=== PATIENT | female | born 1950 | race Caucasian/White ===

== ENCOUNTER 2016-09-07 08:31 | Inpatient (IN) | payer OTHER ==
[2016-09-04 12:56] LABS: HEMATOCRIT 33.3 % (36.0-48.0); HEMOGLOBIN 10.7 g/dL (12.0-16.0)
[2016-09-04 13:09] LABS: BUN (BLOOD UREA NITROGEN) 16 MG/DL (6-23); CALCIUM, SERUM 8.7 MG/DL (8.5-10.4); CHLORIDE, SERUM 104 MMOL/L (96-112); CO2 (CARBON DIOXIDE) 32 MMOL/L (24-34); CREATININE 0.79 MG/DL (0.55-1.02); GFR AFRICAN AMERICAN 90 ML/MIN (>=60); GFR NON AFRICAN AMERICAN 77 ML/MIN (>=60); GLUCOSE, SERUM 74 MG/DL (60-99); POTASSIUM, SERUM 4.1 MMOL/L (3.5-5.3); SODIUM, SERUM 143 MMOL/L (135-148)
--- NOTE | ~2016-09-07 | OP ---
Record Of Operation [facility] [address] [place]. [address] NAME: SHARLA HEBERT : 48 STATUS : ADM IN PAT#: [id number] AGE: 66 ADM/REG DATE : 09/07/16 MR#: [id number] REPORT SERV DATE: 09/07/16 DICTATED BY: LEONORA HUTCHINSON DATE: 09/07/16 REPORT STATUS : Draft TRANSCRIBED BY: MODL DATE: 09/07/16 DATE OF PROCEDURE: 09/07/2016 PREOPERATIVE DIAGNOSIS: Incarcerated incisional hernia. POSTOPERATIVE DIAGNOSIS: Incarcerated incisional hernia. PROCEDURE: Open incisional hernia repair with mesh. ENVIRONMENTAL HEALTH NURSE: Venkat Sheehan. ANESTHESIA: General and TAP blocks. ESTIMATED BLOOD LOSS: 5 mL. IV FLUIDS: 900 mL. SPECIMENS: None. COMPLICATIONS: None. BRIEF HISTORY: Ms. Hebert is a 66-year-old woman who has had a previous open cholecystectomy many years ago. She developed a small incisional hernia, became incarcerated with fat, and became painful. Open repair was recommended. The procedure with the risks including bleeding, infection, requiring removal of the mesh, chronic pain, and recurrence of hernia were all explained, and she agreed to proceed. DESCRIPTION OF PROCEDURE: After consent was obtained, she was taken to the operating room and placed in supine position on the operating table. General endotracheal anesthesia was administered. The abdomen was then prepped and draped in normal sterile fashion. Preoperative antibiotics were administered. SCDs were placed. Time-out was performed. We began by reopening the previous scar at the medial aspect of the right upper quadrant incision. Electrocautery was then used to dissect down to the fascia. We identified the hernia contents as I came through a small defect in the medial portion of the incision. We dissected the fat that was herniated circumferentially and then away from the fascia. A large right angle clamp was placed across the base and it was divided and passed off the field and it was ligated using a 2-0 Vicryl tie. This was reduced back into the abdomen. We then elevated the edges of the hernia and created preperitoneal flaps. Hernia defect measured approximately 2.5 cm. We then placed a 4.3 cm Ventral Patch Proceed mesh within the preperitoneal space. It was secured medially and laterally to the fascia using a U- stitch of 0 Nurolon suture. We then reapproximated the fascial defect using interrupted 0 Nurolon sutures. The cavity was irrigated with sterile saline. Hemostasis was good. Reapproximated the deep tissues in 2 layers using interrupted 3-0 Vicryl suture and the skin was closed using a running 4-0 Monocryl subcuticular stitch. The abdomen was cleaned and Dermabond was applied. The patient tolerated the procedure well, was extubated in the Record Of Operation [address] [address] NAME: SHARLA HEBERT : 48 STATUS : ADM IN PAT#: [id number] AGE: 66 ADM/REG DATE : 09/07/16 MR#: [id number] REPORT SERV DATE: 09/07/16 DICTATED BY: LEONORA HUTCHINSON SHANE DATE: 09/07/16 REPORT STATUS : Draft TRANSCRIBED BY: CHRISTINA DATE: 09/07/16 operating room, and sent to the recovery room in stable condition. JAMIE/CHRISTINA Leonora Hutchinson MD / [id number] CC: Leonora Hutchinson MD
[~2016-09-07 08:31] MED LIST: AVINZA30 PO; BREO ELLIPTA 21 EACH INH; CARTIA XT240 MG/24 PO; DILT-XR240 MG PO; EFFEXOR XR150 MG PO; EVISTA60 PO; L20 PO; LEXAPRO10 PO; LIPITOR40 PO; LORT7 PO; MSCONT15 PO; MSIMMR15 PO; NASONEX NAS; NORCO1 TAB PO; NUIRONCAP PO; PERCOCET1 TA2 PO; PRILOSEC40 MG PO; PRIN10 PO; PROAIR HFA INH; RYTHMOL150 MG PO; SINGULAIR1 PO; TRAZ100 PO; ZYRTEC ALLGY10 MG PO; ZYRTEC-D ALG PO
[2016-09-08] MEDS ORDERED: NORCO1 TAB PO (10:11)
== END 2016-09-08 11:32 | disposition home or self-care (01) | DRG 355 ==
LOC: SDC/OF 08:31 → PACU 12:14 → 5SO 13:28
PROVIDERS: Surgery
PROC: 3E0T3CZ (ICD-10-PCS; 2016-09-07)
PROC: 0WUF0JZ Supplement Abdominal Wall with Synthetic Substitute, Open Approach (ICD-10-PCS; principal; 2016-09-07 10:15)
DX: K43.0 Incisional hernia with obstruction, without gangrene (principal); I48.2 Chronic atrial fibrillation; J44.9 Chronic obstructive pulmonary disease, unspecified; G89.29 Other chronic pain; M54.9 Dorsalgia, unspecified; Z87.891 Personal history of nicotine dependence
CPT/HCPCS: 80048; 82962; 85014; 85018; 87641; 93005; 94640; A9270-GY; C1781; J0360; J0690; J1170; J2175; J2250; J2270; J2405; J2710; J2795; J3010

== ENCOUNTER 2016-09-10 21:14 | Inpatient (IN) | payer OTHER ==
--- NOTE | ~2016-09-10 | DS ---
Discharge Summary [id number] [place]. [address] NAME: JORGE CHING : 48 STATUS : DIS IN PAT#: [id number] AGE: 66 ADM/REG DATE : 09/10/16 MR#: [id number] REPORT SERV DATE: 09/13/16 DICTATED BY: LILIAN LEONARD DATE: 09/12/16 REPORT STATUS : Draft TRANSCRIBED BY: CHRISTINA DATE: 09/12/16 ADMISSION DATE: 09/10/2016 DISCHARGE DATE: 09/12/2016 DISCHARGE DIAGNOSES: 1. Sepsis. 2. Healthcare associated pneumonia. 3. Paroxysmal atrial fibrillation. 4. History of esophageal stricture. 5. History of chronic back pain. 6. History of T12 compression fracture. 7. History of hypertension. 8. History of recent herniorrhaphy. 9. Normocytic anemia without evidence of acute blood loss. DISCHARGE CONDITION: Stable. HISTORY OF PRESENT ILLNESS: For detailed HPI, please make reference to Dr. Shorty Sweeney's dictation on 09/11/2016. In brief, this is a 66-year-old female with medical history significant for recent incisional hernia repair who was recently discharged home on 09/08. She presented to the hospital 2 days after discharge with complaints of cough, chest congestion, fever, and chills. In the ER, she was found to have a temperature of 102.6, pulse rate of 106, blood pressure 175/77, respiratory rate of 22, saturating 86% on room air. Physical examination noted for bibasilar crackles and labored respiratory effort. LABORATORY DATA: Significant for WBC of 12.4, lactic acid of 0.8. CT scan of the abdomen and pelvis showed no acute intraabdominal process but noted a left lower lobe pneumonia. An assessment of healthcare associated pneumonia was made in the ER. The patient was admitted to the Hospitalist Service for further management. HOSPITAL COURSE: 1. Sepsis due to healthcare associated pneumonia. The patient was started on broad- spectrum IV antibiotics of vancomycin and cefepime. White cell count gradually trended down and returned to baseline. The patient's blood cultures yielded no growth. Shortness of breath and cough continued to improve. The patient's oxygen demand also significantly continued to improve during the course of this admission. The patient also received DuoNebs treatment. Cough and shortness of breath at the time of discharge had completely resolved. The patient was transitioned from IV antibiotics to p.o. antibiotics to complete a total of seven days' antibiotics therapy. The patient was advised to continue to follow up with her primary care physician at the time of discharge. 2. Acute hypoxic respiratory failure. On presentation, the patient has significant hypoxia with oxygen saturation in the low 80s. The patient was placed on 4 L of oxygen. The patient's oxygen saturation significantly improved into the 93. The patient received IV antibiotics throughout the course of this admissions, and oxygen demand significantly improved. Prior to discharge, the patient will have an evaluation Discharge Summary [id number] [place]. [address] NAME: JORGE CHING : 48 STATUS : DIS IN PAT#: [id number] AGE: 66 ADM/REG DATE : 09/10/16 MR#: [id number] REPORT SERV DATE: 09/13/16 DICTATED BY: LILIAN LEONARD DATE: 09/12/16 REPORT STATUS : Draft TRANSCRIBED BY: CHRISTINA DATE: 09/12/16 for need for home O2. If she meets criteria, she will be discharged home with home oxygen. 3. Paroxysmal atrial fibrillation. The patient was diagnosed with AFib in 2014. At the time of diagnosis, CHADS score was 0. The patient was not on chronic anticoagulation. The patient reported that her assistive technology specialist recently moved out of town and is yet to find a new assistive technology specialist. The patient's last known assistive technology specialist was Dr. Ty. The patient's CHADS2-VASc score is 3; however, we will not initiate chronic anticoagulation during the course of this admission as the patient recently just had a recent surgery. We will defer chronic anticoagulation to the patient's new assistive technology specialist as an outpatient. I will ensure that the patient has an appointment with cardiology team within one to two weeks of discharge. The patient was advised to continue Cardizem for rate control. 4. Hypertension. The patient's blood pressure remained controlled throughout the course of this admission. 5. History of recent incisional herniorrhaphy. The patient's surgeon was notified of patient's admission, will stop by to evaluate the patient. No acute intraabdominal process identified. The patient was advised to continue followup with surgeon as scheduled. DISCHARGE MEDICATIONS: 1. Levofloxacin 750 mg p.o. daily. 2. Diltiazem 250 mg p.o. daily. 3. Colace 100 mg p.o. b.i.d. 4. Ferrous 150 mg p.o. daily. 5. Albuterol inhaler. 6. [place] 10/325 mg p.o. q.6 hours. 7. Omeprazole 40 mg p.o. daily. 8. Lasix 20 mg p.o. daily p.r.n. for fluid retention. DISCHARGE FOLLOWUP: 1. The patient will follow up with primary care physician within one to two weeks of discharge. 2. The patient to follow up with General Surgery within scheduled. 3. The patient to follow up with Cardiology within one to two weeks of discharge. DISCHARGE ACTIVITIES: As tolerated. DISCHARGE DIET: Low-salt diet. Greater than 35 minutes was used to prepare this patient's discharge, reconcile medication, advise the patient on discharge plans and followup. MIRIANO/CHRISTINA Lilian Villalobos Discharge Summary [address] [address] NAME: JORGE CHING MARY KATE : 48 STATUS : DIS IN PAT#: [id number] AGE: 66 ADM/REG DATE : 09/10/16 MR#: [id number] REPORT SERV DATE: 09/13/16 DICTATED BY: LILIAN LEONARD DATE: 09/12/16 REPORT STATUS : Draft TRANSCRIBED BY: MODRobin DATE: 09/12/16 MD Jose / [id number]
--- NOTE | ~2016-09-10 | HP ---
History And Physical [address] [address] NAME: JORGE CHING : 48 STATUS : ADM IN PAT#: [id number] AGE: 66 ADM/REG DATE : 09/10/16 MR#: [id number] REPORT SERV DATE: 09/11/16 DICTATED BY: CELINE CARLSON DATE: 09/11/16 REPORT STATUS : Draft TRANSCRIBED BY: MODL DATE: 09/11/16 DATE OF ADMISSION: 09/10/2016 CHIEF COMPLAINT: A 66-year-old female presenting after recent incisional hernia repair with fevers, chills, chest congestion. HISTORY OF PRESENT ILLNESS: The patient's history was obtained through careful interview with the patient and coupled with review of [facility] and [facility] medical records. The patient underwent surgery for an incarcerated incisional hernia under the care Dr. Hutchinson on 09/07. She recovered quite well from that surgery and has been able to return home with a good appetite and good bowel movements. Just on the day of admission, she developed nausea with three episodes of vomiting and became increasingly ill as the day progressed. She describes fevers up to 102.0, chills, diaphoresis. She developed chest congestion, nonproductive cough, but no shortness of breath. She describes abdominal discomfort, a fullness quality, 6/10 severity with bloating. She describes a midback pain possibly at the base of her lungs. She describes it mostly midline though and aching quality, 8/10 severity exacerbated by coughing. She looks pale to her family. She has had lightheadedness, but no confusion. REVIEW OF SYSTEMS: Otherwise, a 14-point review of systems was obtained and was negative. PAST MEDICAL HISTORY: 1. COPD. 2. Paroxysmal atrial fibrillation. 3. Hypertension. 4. Esophageal stricture seen by Dr. Doty. 5. Chronic back pain. 6. T12 compression fracture. 7. Nephrolithiasis seen previously by Dr. Sarabia. PAST SURGICAL HISTORY: 1. Hysterectomy with bilateral oophorectomy. 2. Cholecystectomy. 3. Leg fracture with reconstruction. 4. Lumbar spine surgery. History And Physical [address] [address] NAME: JORGE CHING MARY KATE : 48 STATUS : ADM IN PAT#: [id number] AGE: 66 ADM/REG DATE : 09/10/16 MR#: [id number] REPORT SERV DATE: 09/11/16 DICTATED BY: CELINE CARLSON DATE: 09/11/16 REPORT STATUS : Draft TRANSCRIBED BY: CHRISTINA DATE: 09/11/16 5. Cervical spine surgery. 6. Left carpal tunnel release. ALLERGIES: STEROIDS. SOCIAL HISTORY: Quit smoking in 2012. No alcohol abuse. She is , has two children. Two sons live locally, two grandchildren, two great-grandchildren. The patient lives in [place], [place]. FAMILY HISTORY: Mother with an alcoholic. Father committed suicide. CURRENT MEDICATIONS: Include: Albuterol inhaler, Dulcolax, diltiazem extended release 240 mg p.o. daily, iron supplement, Breo Ellipta inhaled at bedtime, Lasix 20 mg as needed, hydrocodone, Levsin, Singulair 10 mg p.o. daily, MS Contin 15 mg p.o. q.8 hours p.r.n., multivitamin, Aleve p.r.n., Prilosec 40 mg as needed. PHYSICAL EXAMINATION: VITAL SIGNS: Temperature 102.6, pulse 106, blood pressure 175/77, respiratory rate 22, O2 saturation 86% on room air, 94% on 3 L nasal cannula. GENERAL: An ill-appearing female, and evidence of some distress secondary to cough and discomfort. HEENT: Pupils equal, round, and reactive to light. No conjunctival pallor. No scleral icterus. Nares are patent. Oropharynx is clear of obstruction. Moist mucous membranes. NECK: Trachea midline. No thyromegaly. LYMPH: No cervical lymphadenopathy. No supraclavicular lymphadenopathy. No inguinal lymphadenopathy. RESPIRATORY: The patient does have crackles on examination. At this time, I do not appreciate any focal egophony. No wheezes, no rales. The patient has a labored respiratory effort though. CARDIOVASCULAR: Tachycardic. Regular rhythm. No murmurs, rubs, or gallops are appreciated. No extremity edema is appreciated. ABDOMEN: Quite distended by examination with tympanic resonance percussed throughout. Minimally tender throughout, but nonfocal. No guarding. No rebound. Diminished bowel tones. No hepatosplenomegaly. DERMATOLOGICAL: Warm and dry extremities, no pallor no cyanosis. PSYCHIATRIC: Normal affect. Good mood. Alert and oriented x3. LABORATORY DATA: White blood cell count 12.4, hemoglobin 10, hematocrit 33, platelets 299, sodium 137, potassium 3.7, chloride 102, bicarb 27, BUN 21, creatinine 0.9, glucose 128, lipase 59, lactic acid 0.8. Liver enzymes within normal limits. Urinalysis negative for infection. STUDIES: A CT scan of the abdomen and pelvis shows no acute intraabdominal process, but does show a left lower lung pneumonia. ASSESSMENT AND PLAN: 1. Sepsis with white blood cell count of 12.4, fever 102.6, tachycardia, and tachypnea. History And Physical [address] [address] NAME: JORGE CHING : 48 STATUS : ADM IN [facility]#: [id number] AGE: 66 ADM/REG DATE : 09/10/16 MR#: [id number] REPORT SERV DATE: 09/11/16 DICTATED BY: CELINE CARLSON DATE: 09/11/16 REPORT STATUS : Draft TRANSCRIBED BY: CHRISTINA DATE: 09/11/[address] on IV antibiotics. 2. Facility-acquired pneumonia. Check blood cultures. Place on IV antibiotics. 3. Recovering hernia repair. Consult Dr. Hutchinson, surgeon. 4. Hypoxic respiratory failure. Provide supportive care. 5. Paroxysmal atrial fibrillation. Check telemetry. KPL/MODL Celine Carlson M.D. / [id number] CC: Gabe Brush MD
[2016-09-10 20:21] LABS: ASCORBIC ACID (UR NOT ORDER) NEG (NEG); BILIRUBIN, URINE NEGATIVE (NEG); KETONE, URINE 20 MG/DL (NEG); LEUKOCYTE ESTERASE(NOT OR NEG (NEG); NITRITE (URINE) NEG (NEG); WBC (NOT ORDERED) (RFLEX) 1 (0-5)
[2016-09-10 20:24] LABS: BASOPHILS 0.2 %; BASOPHILS ABSOLUTE 0.02 10/3/uL (0.0-0.16); EOSINOPHILS 2.9 %; EOSINOPHILS ABSOLUTE 0.36 10/3/uL (0.0-0.53); HEMATOCRIT 33.6 % (36.0-48.0); HEMOGLOBIN 10.8 g/dL (12.0-16.0); IMMATURE GRANULOCYTES 0.2 %; IMMATURE GRANULOCYTES ABSOLUTE 0.03 10/3/uL (0.0-0.11); LYMPHOCYTES 5.4 %; LYMPHOCYTES ABSOLUTE 0.67 10/3/uL (0.67-4.30); MEAN CORPUS HGB CONC 32.1 g/dL (32.0-36.0); MEAN CORPUSCULAR HEMOGLOB 28.8 pg (26.0-34.0); MEAN CORPUSCULAR VOLUME 89.6 fL (80-100); MEAN PLATELET VOLUME 9.8 fL (9.2-13.0); MONOCYTES 4.7 %; MONOCYTES ABSOLUTE 0.59 10/3/uL (0.21-1.20); NEUTROPHILS 86.6 %; NEUTROPHILS ABSOLUTE 10.77 10/3/uL (2.02-8.40); PLATELET COUNT 299 10/3/uL (150-400); RBC DISTRIBUTION WIDTH 15.1 % (12.0-16.0); RED CELL COUNT 3.75 10/6/uL (4.0-5.6)
[2016-09-10 20:25] LABS: ER CBC TAT 0 Hrs 10 Mins; MANUAL DIFF NO %; WHITE BLOOD CELLS 12.4 10/3/uL (4.5-10.5)
[2016-09-10 20:42] LABS: BUN (BLOOD UREA NITROGEN) 21 MG/DL (6-23); CALCIUM, SERUM 8.9 MG/DL (8.5-10.4); CHLORIDE, SERUM 102 MMOL/L (96-112); CO2 (CARBON DIOXIDE) 27 MMOL/L (24-34); DIRECT BILIRUBIN 0.1 MG/DL (0.0-0.4); GFR AFRICAN AMERICAN 77 ML/MIN (>=60); GFR NON AFRICAN AMERICAN 66 ML/MIN (>=60); GLUCOSE, SERUM 128 MG/DL (60-99); INDIRECT BILIRUBIN(NOT ORDER) 0.4 MG/DL (0.1-0.9); POTASSIUM, SERUM 3.7 MMOL/L (3.5-5.3); SODIUM, SERUM 137 MMOL/L (135-148); TOTAL BILIRUBIN 0.5 MG/DL (0-1.2)
[2016-09-10 21:13] LABS: ALKALINE PHOSPHATASE 110 U/L (45-117); SGOT(AST) 21 U/L (5-40); SGPT(ALT) 24 U/L (5-65); TOTAL PROTEIN 7.6 G/DL (6.0-8.5)
[2016-09-10 21:14] LABS: ALBUMIN 3.9 G/DL (3.5-5.0)
[2016-09-10] MEDS ORDERED: NORCO1 TAB PO (21:30)
[2016-09-10] MEDS ORDERED: NUIRONCAP PO (21:31)
[2016-09-10] MEDS ORDERED: MSCONT15 PO (21:31)
[2016-09-10] MEDS ORDERED: CARTIA XT240 MG/24 PO (21:31)
[2016-09-10] MEDS ORDERED: BREO ELLIPTA 21 EACH INH (21:32)
[2016-09-10] MEDS ORDERED: ALBUTEROL0.083 % INH (21:32)
[2016-09-10] MEDS ORDERED: PROAIR HFA INH (21:32)
[2016-09-10] MEDS ORDERED: SINGULAIR1 PO (21:33)
[2016-09-10] MEDS ORDERED: PRILOSEC40 MG PO (21:33)
[2016-09-10] MEDS ORDERED: LEVSINTAB PO (21:34)
[2016-09-10] MEDS ORDERED: L20 PO (21:35)
[2016-09-10] MEDS ORDERED: BIST PO (21:35)
[2016-09-10] MEDS ORDERED: ALEVE220 MG PO (21:36)
[2016-09-10] MEDS ORDERED: MULTIVIT/MIN PO (21:37)
[2016-09-11 06:25] LABS: BASOPHILS 0.2 %; BASOPHILS ABSOLUTE 0.03 10/3/uL (0.0-0.16); EOSINOPHILS 1.5 %; HEMOGLOBIN 9.4 g/dL (12.0-16.0); IMMATURE GRANULOCYTES 0.4 %; IMMATURE GRANULOCYTES ABSOLUTE 0.05 10/3/uL (0.0-0.11); MEAN CORPUS HGB CONC 32.6 g/dL (32.0-36.0); MEAN CORPUSCULAR HEMOGLOB 29.4 pg (26.0-34.0); MEAN PLATELET VOLUME 9.7 fL (9.2-13.0); MONOCYTES 5.9 %; NEUTROPHILS ABSOLUTE 11.49 10/3/uL (2.02-8.40); PLATELET COUNT 261 10/3/uL (150-400); WHITE BLOOD CELLS 13.7 10/3/uL (4.5-10.5)
[2016-09-11 06:26] LABS: HEMATOCRIT 28.8 % (36.0-48.0); MANUAL DIFF NO %
[2016-09-11 06:32] LABS: INTERNATIONAL NORMAL RATI 1.2 UNITS (-); PARTIAL THROMBO TIME 36.6 SEC (22.5-37.2); PROTIME (NOT ORD) 14.8 SEC (12.0-14.5)
[2016-09-11 06:51] LABS: CALCIUM, SERUM 8.5 MG/DL (8.5-10.4); CHLORIDE, SERUM 106 MMOL/L (96-112); CO2 (CARBON DIOXIDE) 26 MMOL/L (24-34); CREATININE 0.52 MG/DL (0.55-1.02); GFR AFRICAN AMERICAN 115 ML/MIN (>=60); GFR NON AFRICAN AMERICAN 99 ML/MIN (>=60); GLUCOSE, SERUM 105 MG/DL (60-99); PHOSPHORUS, SERUM 2.9 MG/DL (2.5-4.5); POTASSIUM, SERUM 4.3 MMOL/L (3.5-5.3); SGPT(ALT) 20 U/L (5-65); SODIUM, SERUM 140 MMOL/L (135-148); TOTAL BILIRUBIN 0.5 MG/DL (0-1.2); TOTAL PROTEIN 6.2 G/DL (6.0-8.5); TROPONIN I <0.02 NG/ML (<0.05)
[2016-09-11 06:52] LABS: A/G RATIO 0.9 (0.7-1.9); ALBUMIN 2.9 G/DL (3.5-5.0); ALKALINE PHOSPHATASE 83 U/L (45-117); BUN (BLOOD UREA NITROGEN) 12 MG/DL (6-23); GLOBULIN 3.3 G/DL (2.5-4.1); SGOT(AST) 28 U/L (5-40); ULTRASENSITIVE TSH 0.287 MCIU/ML (0.358-3.740)
[2016-09-11 07:07] LABS: PROCALCITONIN 1.54 ng/mL (<0.5)
[2016-09-12 05:17] LABS: BASOPHILS 0.5 %; BASOPHILS ABSOLUTE 0.03 10/3/uL (0.0-0.16); EOSINOPHILS 6.3 %; EOSINOPHILS ABSOLUTE 0.42 10/3/uL (0.0-0.53); HEMATOCRIT 28.4 % (36.0-48.0); HEMOGLOBIN 9.4 g/dL (12.0-16.0); IMMATURE GRANULOCYTES 0.2 %; IMMATURE GRANULOCYTES ABSOLUTE 0.01 10/3/uL (0.0-0.11); LYMPHOCYTES 16.3 %; LYMPHOCYTES ABSOLUTE 1.08 10/3/uL (0.67-4.30); MEAN CORPUS HGB CONC 33.1 g/dL (32.0-36.0); MEAN CORPUSCULAR HEMOGLOB 29.5 pg (26.0-34.0); MONOCYTES 8.6 %; MONOCYTES ABSOLUTE 0.57 10/3/uL (0.21-1.20); NEUTROPHILS 68.1 %; NEUTROPHILS ABSOLUTE 4.52 10/3/uL (2.02-8.40); PLATELET COUNT 255 10/3/uL (150-400); RBC DISTRIBUTION WIDTH 15.1 % (12.0-16.0); RED CELL COUNT 3.19 10/6/uL (4.0-5.6)
[2016-09-12 05:22] LABS: MANUAL DIFF NO %; WHITE BLOOD CELLS 6.6 10/3/uL (4.5-10.5)
[2016-09-12 05:33] LABS: BUN (BLOOD UREA NITROGEN) 8 MG/DL (6-23); CALCIUM, SERUM 8.9 MG/DL (8.5-10.4); CHLORIDE, SERUM 106 MMOL/L (96-112); CO2 (CARBON DIOXIDE) 27 MMOL/L (24-34); CREATININE 0.44 MG/DL (0.55-1.02); GFR AFRICAN AMERICAN 121 ML/MIN (>=60); GFR NON AFRICAN AMERICAN 104 ML/MIN (>=60); GLUCOSE, SERUM 99 MG/DL (60-99); PHOSPHORUS, SERUM 2.5 MG/DL (2.5-4.5); POTASSIUM, SERUM 3.9 MMOL/L (3.5-5.3); SODIUM, SERUM 142 MMOL/L (135-148)
[2016-09-12] MEDS ORDERED: DSS PO (09:57)
[2016-09-12] MEDS ORDERED: SENTAB PO (09:58)
[2016-09-12] MEDS ORDERED: LEVAQUIN750 MG PO (09:58)
== END 2016-09-12 12:29 | disposition home or self-care (01) | DRG 871 ==
LOC: ER 21:14 → 6NO 23:32
PROVIDERS: Emergency Medicine; Hospitalist
DX: A41.9 Sepsis, unspecified organism (principal); J18.9 Pneumonia, unspecified organism; J96.01 Acute respiratory failure with hypoxia; I48.0 Paroxysmal atrial fibrillation; J44.9 Chronic obstructive pulmonary disease, unspecified; K22.2 Esophageal obstruction; I10 Essential (primary) hypertension; M54.9 Dorsalgia, unspecified; Y95 Nosocomial condition; D64.9 Anemia, unspecified; Z87.442 Personal history of urinary calculi; Z90.49 Acquired absence of other specified parts of digestive tract; Z87.891 Personal history of nicotine dependence; Z90.710 Acquired absence of both cervix and uterus; Z81.1 Family history of alcohol abuse and dependence; Z98.890 Other specified postprocedural states
CPT/HCPCS: 71010; 74177; 80048; 80053; 80069; 80076; 81001; 82247; 82248; 83605; 83690; 83735; 83880; 84100; 84145; 84443; 84484; 85025; 85610; 85730; 87040; 94640; 96365; 99285; A9270-GY; J0692; J2543; J3370